=== PATIENT | female | born 1950 | race Caucasian/White ===

== ENCOUNTER 2018-10-16 13:23 | Outpatient (CLI) | payer MEDICARE, BC | END 2018-10-16 23:59 | disposition home or self-care (01) | LOC: CARD DIAG 13:23 | PROVIDERS: ATTEND Orthopaedic Surgery | DX: Z01.810 Encounter for preprocedural cardiovascular examination (principal); R94.30 Abnormal result of cardiovascular function study, unspecified; I10 Essential (primary) hypertension; I08.3 Combined rheumatic disorders of mitral, aortic and tricuspid valves | CPT/HCPCS: 93306 ==